=== PATIENT | male | born 1995 | race Two or more races ===

== ENCOUNTER 2023-10-07 17:43 | Emergency (ER) | payer OTHER ==
[~2023-10-07] VITALS: Ht 167.6 cm; Wt 72.6 kg
[2023-10-07 17:47] VITALS: BP 138/78; TEMP 98.5; O2SAT 100
== END 2023-10-07 18:09 | disposition home or self-care (01) ==
LOC: ER 17:46
DX: R44.0 Auditory hallucinations (principal); Z53.21 Procedure and treatment not carried out due to patient leaving prior to being seen by health care provider

== ENCOUNTER 2025-03-08 20:56 | Emergency (ER) | payer OTHER | END 2025-03-08 22:40 | disposition left against medical advice (07) | LOC: ER 21:20 | DX: T81.49XA Infection following a procedure, other surgical site, initial encounter (principal); Z53.21 Procedure and treatment not carried out due to patient leaving prior to being seen by health care provider; Y92.89 Other specified places as the place of occurrence of the external cause ==

== ENCOUNTER 2025-06-21 04:57 | Emergency (ER) | payer MEDICAID, OTHER ==
[~2025-06-21] VITALS: Ht 167.6 cm; Wt 61.2 kg
[2025-06-21] MEDS ORDERED: LORAZEPAM INJ 2 MG/ML VIAL ONE (05:19)
[2025-06-21 05:34] LABS: PLATELET COUNT (AUTO) 224 K/uL (150-450); RED BLOOD CELL COUNT(AUTO) 4.23 MIL/uL (4.5-6.0); RED CELL DISTRIBUTION WIDTH 12.6 % (11.5-15.0); WHITE BLOOD COUNT (AUTO) 5.3 K/uL (4.3-11.0)
[2025-06-21 05:41] LABS: CALCIUM, SERUM 8.3 mg/dL (8.5-10.1); CREATININE 0.7 mg/dL (0.6-1.3); SODIUM SERUM 143 mmol/L (136-145); UREA NITROGEN, BLOOD 11 mg/dL (7-18)
[2025-06-21 05:49] LABS: ALCOHOL, BLOOD < 3 mg/dL (0-10); ASPARTATE AMINOTRANSFERASE 41 U/L (15-37); TOTAL PROTEIN, SERUM 6.9 g/dL (6.4-8.2)
[2025-06-21] MEDS: LORAZEPAM INJ 2 MG/ML VIAL IM ONE (06:03)
[2025-06-21] MEDS ORDERED: LIDOCAINE 2% JEL UROJET 10 ML MM ONE (06:19)
[2025-06-21 07:18] LABS: APPEARANCE,URINE CLEAR (CLEAR); BLOOD, URINE NEGATIVE Ery/uL (NEGATIVE); LEUKOCYTE ESTERASE ,URINE NEGATIVE (NEGATIVE); NITRITE, URINE NEGATIVE (NEGATIVE); UGLUCOSE NEGATIVE (NEGATIVE)
[2025-06-21 07:36] LABS: BARBITURATE, URINE NEGATIVE (NEGATIVE); BENZODIAZEPINE, URINE NEGATIVE (NEGATIVE); COCCAINE, URINE NEGATIVE (NEGATIVE); OPIATE, URINE NEGATIVE (NEGATIVE)
[2025-06-21 07:37] LABS: AMPHETAMINE, URINE POSITIVE (NEGATIVE); CANNABINOID, URINE POSITIVE (NEGATIVE)
[2025-06-21 16:16] VITALS: BP 130/76; TEMP 98.2; O2SAT 100
== END 2025-06-21 16:16 | disposition home or self-care (01) ==
LOC: ER 05:00
DX: F31.9 Bipolar disorder, unspecified (principal); F60.9 Personality disorder, unspecified; F19.10 Other psychoactive substance abuse, uncomplicated; I10 Essential (primary) hypertension; F17.200 Nicotine dependence, unspecified, uncomplicated; Z88.0 Allergy status to penicillin; Z02.89 Encounter for other administrative examinations; Z60.2 Problems related to living alone; Z79.899 Other long term (current) drug therapy
CPT/HCPCS: 99285; 96372; 85025; 80048; 80076; 81003; 36415; 80143; 80320; 80307; J2060; J3490; G0480

== ENCOUNTER 2025-06-23 00:12 | Emergency (ER) | payer MEDICAID ==
[~2025-06-23] VITALS: Ht 172.7 cm; Wt 88.5 kg
[2025-06-23 01:01] LABS: PLATELET COUNT (AUTO) 236 K/uL (150-450); RED BLOOD CELL COUNT(AUTO) 4.32 MIL/uL (4.5-6.0); RED CELL DISTRIBUTION WIDTH 12.9 % (11.5-15.0); WHITE BLOOD COUNT (AUTO) 6.0 K/uL (4.3-11.0)
[2025-06-23 01:05] LABS: APPEARANCE,URINE CLEAR (CLEAR); BLOOD, URINE NEGATIVE Ery/uL (NEGATIVE); LEUKOCYTE ESTERASE ,URINE NEGATIVE (NEGATIVE); NITRITE, URINE NEGATIVE (NEGATIVE); UGLUCOSE NEGATIVE (NEGATIVE)
[2025-06-23 01:06] LABS: CALCIUM, SERUM 8.5 mg/dL (8.5-10.1); CREATININE 0.8 mg/dL (0.6-1.3); SODIUM SERUM 144 mmol/L (136-145); UREA NITROGEN, BLOOD 15 mg/dL (7-18)
[2025-06-23 01:12] LABS: ALCOHOL, BLOOD < 3 mg/dL (0-10); ASPARTATE AMINOTRANSFERASE 27 U/L (15-37); TOTAL PROTEIN, SERUM 7.0 g/dL (6.4-8.2)
[2025-06-23 01:14] LABS: AMPHETAMINE, URINE NEGATIVE (NEGATIVE); BARBITURATE, URINE NEGATIVE (NEGATIVE); BENZODIAZEPINE, URINE NEGATIVE (NEGATIVE); COCCAINE, URINE NEGATIVE (NEGATIVE); OPIATE, URINE NEGATIVE (NEGATIVE)
[2025-06-23 01:15] LABS: CANNABINOID, URINE POSITIVE (NEGATIVE)
[2025-06-23 08:25] VITALS: BP 129/70; TEMP 98.3; O2SAT 96
== END 2025-06-23 08:27 | disposition home or self-care (01) ==
LOC: ER 00:14
DX: R45.851 Suicidal ideations (principal); F60.9 Personality disorder, unspecified; F31.9 Bipolar disorder, unspecified; F17.200 Nicotine dependence, unspecified, uncomplicated; I10 Essential (primary) hypertension; Z88.0 Allergy status to penicillin; Z79.899 Other long term (current) drug therapy
CPT/HCPCS: 36415; 80048-TC; 80076-TC; 85025-TC; G0480